=== PATIENT | female | born 1970 | race Caucasian/White ===

== ENCOUNTER → 2017-02-05 | Outpatient (CLI) | payer OTHER ==
[~2017-02-05] MED LIST: FLUO40CA7 PO; HYDR-3989 PO; LORA1TAB3 PO; SIMV10TA76 PO; [UNRECOGNIZED DRUG - CODE] PO
--- NOTE | 2017-02-06 08:27 | DI ---
INDICATION: ITS.REASON: R05 COUGH PROCEDURE: CHEST 2-VIEWS UPRIGHT (PA \T\ LAT) Encounter: Initial COMPARISON: April 11, 2013 FINDINGS: The lungs are clear without evidence of focal abnormal airspace opacity. There is no pleural effusion or pneumothorax. The heart size, mediastinal contours and pulmonary vascularity are within normal limits. There is no significant skeletal abnormality. IMPRESSION: No acute cardiopulmonary disease. .
== END ==
LOC: IMA 18:01
PROVIDERS: ATTEND Family Medicine
DX: R05 Cough (principal)